=== PATIENT | male | born 1990 | race African-American/Black ===

== ENCOUNTER 2023-10-06 15:08 | Emergency (ER) | payer MEDICARE, MEDICAID ==
[~2023-10-06] VITALS: Ht 175.3 cm; Wt 75.0 kg
[~2023-10-06 15:08] MED LIST: AMLO10TA80 PO; CLON0.3T PO; COR12 PO; HYDR100T26 PO; ISOS60TA76 PO; LOSA100T33 PO; SEVE800T8 PO
[2023-10-06 15:19] VITALS: TEMP 98.6; O2SAT 98
[2023-10-06 16:06] LABS: BASOPHILS % 2.3 % (0.0-2.0); EOSINOPHILS % 5.6 % (0.0-5.0); HEMATOCRIT. 36.2 % (42.0-52.0); HEMOGLOBIN. 11.6 g/dL (14.0-18.0); LYMPHOCYTES % 14.3 % (20.0-50.0); MEAN CORPUSCULAR HEMOGLOBIN 27.6 pg (28.0-32.0); MEAN CORPUSCULAR VOLUME 86.1 fL (80.0-94.0); MEAN PLATELET VOLUME 8.2 fl (7.4-10.4); MONOCYTES % 13.4 % (2.0-8.0); NEUTROPHILS % 64.4 % (40.0-76.0); PLATELET 241 x1000/uL (130-400); RED BLOOD CELL COUNT 4.21 mill/uL (4.7-6.1); RED CELL DISTRIBUTION WIDTH 16.5 % (11.6-14.6)
[2023-10-06 16:24] LABS: ALANINE AMINOTRANSFERASE 19 IU/L (10-49); ALBUMIN 4.5 g/dL (3.2-4.8); ASPARTATE AMINOTRANSFERASE 16 IU/L (<34); BILIRUBIN TOTAL 1.6 mg/dL (0.1-1.0); CALCIUM 9.5 mg/dL (8.7-10.4); CARBON DIOXIDE 30 mEq/L (21-32); CHLORIDE 98 mEq/L (98-107); GLUCOSE 75 mg/dL (70-105); POTASSIUM 3.5 mEq/L (3.5-5.1); PROTEIN TOTAL 7.7 g/dL (6.0-8.3); SODIUM 135 mEq/L (136-145); UREA NITROGEN BLOOD 16 mg/dL (9-23)
[2023-10-06 16:26] LABS: CREATININE 6.8 mg/dL (0.6-1.3)
[2023-10-06 17:52] VITALS: BP 155/95; PULSE 79; RESP 19
== END 2023-10-06 17:58 | disposition home or self-care (01) ==
LOC: ER 15:08
DX: R42 Dizziness and giddiness (principal); I10 Essential (primary) hypertension; Z91.011 Allergy to milk products; Z91.018 Allergy to other foods; Z79.899 Other long term (current) drug therapy; Z98.890 Other specified postprocedural states
CPT/HCPCS: 36415; 71045; 80053; 85025; 93005; 99284